=== PATIENT | male | born 1980 | race Caucasian/White ===

== ENCOUNTER 2016-11-09 09:27 | Emergency (ER) | payer OTHER ==
[~2016-11-09] VITALS: Ht 182.9 cm; Wt 97.5 kg
[2016-11-09 09:36] VITALS: BP 147/87; PULSE 81; RESP 16; TEMP 96.2; O2SAT 97
[2016-11-09] MEDS ORDERED: ACETAMINOPHEN 500 MG TABLET PO ONE (10:00)
[2016-11-09 10:26] VITALS: PULSE 82
[2016-11-09 11:19] VITALS: RESP 18; O2SAT 99
== END 2016-11-09 10:26 | disposition home or self-care (01) ==
LOC: MERGE 09:27 → SED 09:27
DX: G58.8 Other specified mononeuropathies (principal)
CPT/HCPCS: 99283